=== PATIENT | male | born 1990 | race Caucasian/White ===

== ENCOUNTER 2017-10-03 09:59 | Emergency (ER) | payer OTHER ==
[~2017-10-03] VITALS: Ht 165.1 cm; Wt 70.8 kg
[2017-10-03 13:30] VITALS: BP 154/93
== END 2017-10-03 13:36 | disposition home or self-care (01) ==
LOC: ED 09:59
DX: S05.32XA Ocular laceration without prolapse or loss of intraocular tissue, left eye, initial encounter (principal); I10 Essential (primary) hypertension; W22.8XXA Striking against or struck by other objects, initial encounter; Y93.89 Activity, other specified; Y92.89 Other specified places as the place of occurrence of the external cause; Y99.8 Other external cause status
CPT/HCPCS: 90715